=== PATIENT | female | born 1995 | race Caucasian/White ===

== ENCOUNTER 2017-05-06 09:05 | Day surgery (SDC) | payer OTHER ==
[~2017-05-06 09:05] MED LIST: Acetaminophen TAB* 325 MG PO ONE; Buffered Lidocaine 0.9% SYRIN* 5 ML/SYR SYRINGE INTRADERM ONE; Dexamethasone IV* 4 MG/ML 1 ML (4 MG) IV SLOW PU ONE; Metoclopramide IV* 5 MG/ML 2 ML VIAL IV SLOW PU ONE
[2017-05-06] MEDS ORDERED: Metoclopramide IV* 5 MG/ML 2 ML VIAL ONE (09:28)
[2017-05-06] MEDS ORDERED: Buffered Lidocaine 0.9% SYRIN* 5 ML/SYR SYRINGE ONE (09:29)
[2017-05-06] MEDS ORDERED: Acetaminophen TAB* 325 MG ONE (09:29)
[2017-05-06] MEDS ORDERED: ceFAZolin 2 GM PREMIX (*) 50 ML IVPB ONE (09:29)
[2017-05-06] MEDS ORDERED: Dexamethasone IV* 4 MG/ML 1 ML (4 MG) ONE (09:29)
[2017-05-06] MEDS ORDERED: Midazolam* 1 MG/ML 2 ML VIAL (2 MG) ONE ×2 (11:06→11:52)
[2017-05-06] MEDS ORDERED: fentaNYL* 50 MCG/ML 2 ML VIAL (100 MCG VIAL) ONE (11:06)
[2017-05-06] MEDS ORDERED: KETAMINE HCL* 50 MG/ML 10 ML VIAL ONE (11:07)
[2017-05-06] MEDS ORDERED: Lidocaine 1% INJ* 10 MG/ML 30 ML SDV ONE (11:15)
[2017-05-06] MEDS ORDERED: Bupivacaine 0.5% SDV PF* 30 ML VIAL ONE (11:15)
[2017-05-06] MEDS ORDERED: HYDROmorphone INJ* 1 MG/ML CARPUJECT SYRINGE IV PRN (11:22)
[2017-05-06] MEDS ORDERED: oxyCODONE TAB* 5 MG TAB PO PRN (11:22)
[2017-05-06] MEDS ORDERED: Ondansetron INJ* 2 MG/ML VIAL IV PRN (11:22)
[2017-05-06] MEDS ORDERED: Ibuprofen TAB* 600 MG PO PRN (11:22)
[2017-05-06] MEDS ORDERED: fentaNYL* 50 MCG/ML 2 ML VIAL (100 MCG VIAL) IV PRN (11:22)
[2017-05-06] MEDS ORDERED: Scopolamine 1.5 mg* PATCH TRANSDERM PRN (11:22)
[2017-05-06] MEDS ORDERED: Ketorolac INJ* 30 MG/ML 1 ML VIAL ONE (11:49)
[2017-05-06] MEDS ORDERED: Ondansetron INJ* 2 MG/ML VIAL ONE (11:49)
[2017-05-06] MEDS ORDERED: Propofol* 10 MG/ML 20 ML BTL IV PUSH ONE (11:50)
[2017-05-06] MEDS ORDERED: Lidocaine 2% PF * 5 ML VIAL ONE (11:50)
--- NOTE | 2017-05-06 12:56 | SURGPN ---
Brief Operative Note - Surgery Procedures: OPERATIVE REPORT PRE-OP: Epigastric hernia POST-OP: Same PROCEDURE: Open primary repair of epigastric hernia SURGEON: MD Black ANESTHESIA:Local with MAC ASST: none IVF: min EBL: min SPECIMEN: none DRAIN: none WOUND CLASS: One COMPLICATIONS: none TO PACU
[2017-05-06 13:32] VITALS: BP 133/80
--- NOTE | 2017-05-07 13:05 | OP ---
DATE OF OPERATION: 05/06/17 - [facility] DATE OF : 89 SURGEON: Dr. Cleaning. DRILLING MACHINE RUNNER: None. ANESTHESIOLOGIST: Dr. Bhandari. ANESTHESIA: Local with monitored anesthesia care. PRE-OP DIAGNOSIS: Epigastric hernia. POST-OP DIAGNOSIS: Epigastric hernia. OPERATIVE PROCEDURE: Open primary repair of small epigastric hernia. ESTIMATED BLOOD LOSS: Minimal. WOUND CLASSIFICATION: One. COMPLICATIONS: None. DRAINS: None. SPECIMENS: None. DESCRIPTION OF PROCEDURE: Written and informed consent was obtained, the abdomen was marked with indelible ink and preoperative antibiotics were administered. The patient was taken to the operating room and placed in a supine position. Sequential compression devices and a warming blanket were applied. Anesthesia was administered and the abdomen was prepped and draped in the usual sterile fashion. Time out verification was completed. 0.25% Marcaine was infiltrated over the palpable bulge in the upper midline several fingerbreadths above the umbilicus and a vertical incision was made and carried down through the subcutaneous tissue. Here I identified some protuberant fat and I followed this down to the midline fascia and there was a small fascial defect at the midline only about 4 to 5 mm in size. This was not able to completely reduce to the fat, which appeared to be preperitoneal. This was excised using cautery and hemostasis was assured. Due to the small size of the hernia, I closed this primarily with 2 separate 0- Polysorb sutures. Mesh was not used. Hemostasis was assured. The wound was closed in layers of 3-0 and 4-0 Polysorb sutures. Steri-strips and sterile dressings were applied. The patient tolerated the procedure well and was taken to the recovery room in stable condition. [id number]/[facility] #: [id number] [facility]
[2017-05-09] MEDS ORDERED: Scopolomine PATCH Remove* 1 NOTE MISC PATCH OFF ONE (11:23)
== END 2017-05-06 13:45 | disposition home or self-care (01) ==
LOC: OR 09:05
PROVIDERS: ATTEND Surgery
DX: K43.9 Ventral hernia without obstruction or gangrene (principal); J45.909 Unspecified asthma, uncomplicated
CPT/HCPCS: 81025; A9270-GY; J0690; J1100; J1885; J2001; J2250; J2405; J2704; J2765; J3010